=== PATIENT | female | born 1980 | race Caucasian/White ===

== ENCOUNTER 2016-11-12 20:17 | Emergency (ER) | payer OTHER ==
[~2016-11-12] VITALS: Ht 165.1 cm; Wt 63.5 kg
[~2016-11-12 20:17] MED LIST: AMOXICILLIN500 M1 PO; AURALGAN OTIC S10 M1 AD; CARAFATE PO; CIPRO PO; CLINDAMYCIN HC300 MG PO; DARVOCET-N 1001 TA1 PO; DICYCLOMINE HCL20 MG PO; FLEXERIL10 MG PO; IBUPROFEN800 MG PO; IMITREX PO; NAPROSYN250 M1 PO; NO MEDICATIONS; PHENERGAN25 MG PO; PREVACID PO; PRILOSEC40 MG PO; ROBAXIN 750750 M1 PO; RYBIX ODT50 MG; RYBIX ODT50 MG PO; TYLENOL #3 PO; ULTRAM PO; VICODIN 5/1 TAB 5/50 PO; VICODIN 5/500 T1 TAB PO
== END 2016-11-12 23:00 | disposition left against medical advice (07) ==
LOC: CED 20:17 → CFTX 20:17 → CED 22:00
DX: Z53.21 Procedure and treatment not carried out due to patient leaving prior to being seen by health care provider (principal)